=== PATIENT | female | born 1955 | race Asian ===

== ENCOUNTER → 2021-04-02 | Outpatient (CLI) | payer OTHER ==
[~2021-04-02] MED LIST: ASPIRIN E.C. 8181 MG; ATORVASTATIN CA10 MG; METOPROLOL SUCC25 M1
== END ==
LOC: MAMMO 10:00
DX: Z12.31 Encounter for screening mammogram for malignant neoplasm of breast (principal)

== ENCOUNTER → 2022-04-13 | Outpatient (CLI) | payer OTHER | LOC: MAMMO 14:18 | DX: Z12.31 Encounter for screening mammogram for malignant neoplasm of breast (principal) ==

== ENCOUNTER → 2023-06-02 | Outpatient (CLI) | payer OTHER | LOC: MAMMO 09:56 | DX: Z12.31 Encounter for screening mammogram for malignant neoplasm of breast (principal) ==

== ENCOUNTER → 2024-06-07 | Outpatient (CLI) | payer MEDICARE ==
[2024-06-07 15:55] LABS: ALBUMIN 4.3 g/dL (3.4-4.8); CALCIUM 9.1 mg/dL (8.3-10.5); TOTAL BILIRUBIN 0.5 mg/dL (0.2-1.2); TOTAL PROTEIN 7.4 g/dL (6.2-8.1)
== END ==
LOC: LAB 15:51
PROVIDERS: Family Medicine
DX: E78.2 Mixed hyperlipidemia (principal); E79.0 Hyperuricemia without signs of inflammatory arthritis and tophaceous disease; R03.0 Elevated blood-pressure reading, without diagnosis of hypertension

== ENCOUNTER → 2024-06-19 | Outpatient (CLI) | payer MEDICARE | LOC: MAMMO 10:53 | DX: Z12.31 Encounter for screening mammogram for malignant neoplasm of breast (principal) ==

== ENCOUNTER → 2024-11-13 | Outpatient (CLI) | payer MEDICARE ==
[2024-11-13 16:00] LABS: ALBUMIN 4.7 g/dL (3.4-4.8)
[2024-11-13 16:01] LABS: CALCIUM 9.5 mg/dL (8.3-10.5)
[2024-11-13 16:02] LABS: TOTAL PROTEIN 8.6 g/dL (6.2-8.1)
[2024-11-13 16:04] LABS: TOTAL BILIRUBIN 1.1 mg/dL (0.2-1.2)
== END ==
LOC: LAB 15:42
PROVIDERS: Family Medicine
DX: E78.2 Mixed hyperlipidemia (principal); Z92.29 Personal history of other drug therapy